=== PATIENT | male | born 1975 | race Caucasian/White ===

== ENCOUNTER 2020-09-10 19:40 | Inpatient (IN) | payer OTHER ==
[~2020-09-10] VITALS: Ht 175.3 cm; Wt 111.1 kg
[~2020-09-10 19:40] MED LIST: ADVAIR HFA 1112 UNIT INH; ATIVAN1 MG PO; AUGMENTIN 875875 M1; BENZONATATE200 MG; CELEXA 20 MG TA20 M1; LEVAQUIN 500 M500 M2 PO; LEVAQUIN 750 M750 MG PO; NOHOMEMEDICATIONS; PENICILLIN V P500 MG PO; PERCOCET 10-321 EACH PO; PREDNISONE 10 M10 MG PO; PROAIR HFA8.5 GM; SINGULAIR 10 MG10 M1 PO; TAMSULOSIN HCL0.4 M1 PO; ZOFRAN 4 MG ORAL4 MG PO
[2020-09-10 19:44] VITALS: BP 99/64
[2020-09-10] MEDS ORDERED: DECADRON6 MG PO (19:55)
[2020-09-10] MEDS ORDERED: INDERAL LA120 M1 PO (19:55)
[2020-09-10] MEDS ORDERED: DORYX MPC120 MG PO (19:56)
[2020-09-10 20:30] LABS: INFLUENZA A ANTIGEN Negative (Negative); INFLUENZA B ANTIGEN Negative (Negative)
[2020-09-10 20:44] LABS: WBC 6.8 thou/uL (4.0-11.0)
[2020-09-10 20:46] LABS: ABSOLUTE LYMPHOCYTES 0.8 thou/uL (0.8-5.3); ABSOLUTE MONOCYTES 0.5 thou/uL (0.0-1.2); ABSOLUTE NEUTROPHILS 5.4 thou/uL (1.6-8.1); BASOPHILS 0.1 %; HEMATOCRIT 39.9 % (42.0-52.0); LYMPHOCYTES 12.4 %; MCHC 35.1 g/dL (28.0-37.0); MCV 82.7 fL (80.0-100.0); MONOCYTES 7.3 %; MPV 8.4 fl. (7.2-11.1); NUCLEATED RBCS 0 /100WBC; PLATELET COUNT* 194 thou/uL (150-400); POLYS 80.2 %; RBC 4.83 mil/uL (4.50-6.00); RDW-CV 13.6 % (10.5-14.5)
[2020-09-10 20:51] LABS: CALCIUM 8.5 mg/dL (8.5-10.1); CREATININE 1.3 mg/dL (0.6-1.3); POTASSIUM 3.5 mmol/L (3.5-5.1)
[2020-09-10 20:56] LABS: TOTAL BILIRUBIN 0.8 mg/dL (<0.1-1.0); TOTAL PROTEIN 7.1 g/dL (6.4-8.2)
[2020-09-10 22:25] VITALS: BP 96/48
[2020-09-10 22:31] VITALS: BP 100/52
[2020-09-10 23:01] VITALS: BP 100/49
[2020-09-11] VITALS (12 sets, daily range): BP systolic 91–114; BP diastolic 55–69
--- NOTE | 2020-09-11 10:11 | NUR ---
ICU Rounds: Called patient over the phone due to COVID 19 isolation. Introduced role of CM. Patient admitted with SOA. Patient called PCP and was given a pulse ox which showed O2 sats below 90% so patient came to the hospital. Patient tested + for COVID x1 week ago. Patient lives at home in a house with his . Patient has mulitple stairs in his home but has no difficulty getting up and down stairs. Patient works and was independent with ADLS prior to admission. No hx of DME, HH, rehab, BHS services, or infusion therapy. PCP is Dr. Hiram Barth ([facility], [facility]: ). Patient currenly on 15L high flow and is SOA with activity. Patient will need resting ex ox at dc to determine if O2 is needed. No other needs anticipated. CM to continue to follow for safe dc planning
[2020-09-11 11:58] LABS: ABSOLUTE LYMPHOCYTES 0.5 thou/uL (0.8-5.3); ABSOLUTE MONOCYTES 0.6 thou/uL (0.0-1.2); ABSOLUTE NEUTROPHILS 5.6 thou/uL (1.6-8.1); BASOPHILS 0.1 %; HEMATOCRIT 39.3 % (42.0-52.0); HEMOGLOBIN 13.8 gm/dL (14.0-18.0); MCH 28.9 pg (26.0-34.0); MCV 82.6 fL (80.0-100.0); MPV 8.4 fl. (7.2-11.1); NUCLEATED RBCS 0 /100WBC; PLATELET COUNT* 195 thou/uL (150-400); POLYS 83.9 %; RBC 4.77 mil/uL (4.50-6.00); RDW-CV 13.2 % (10.5-14.5); WBC 6.6 thou/uL (4.0-11.0)
[2020-09-11 12:14] LABS: ALBUMIN 2.8 g/dL (3.4-5.0); APTT 23.3 Seconds (25.0-31.3); CALCIUM 8.5 mg/dL (8.5-10.1); CREATININE 1.1 mg/dL (0.6-1.3); INR 1.1; POTASSIUM 4.2 mmol/L (3.5-5.1); PROTIME 11.3 Seconds (9.20-11.50); TOTAL BILIRUBIN 0.5 mg/dL (<0.1-1.0); TOTAL PROTEIN 7.1 g/dL (6.4-8.2)
--- NOTE | 2020-09-11 14:34 | EKG ---
[place] [address] ELECTROCARDIOGRAM REPORT Name: CLAUDIA STEVE Room: [address] ADM IN .R.#: [id number] Admission: 09/10/20 Attend Phys: Diego Delarosa Discharge: Date of : 73 Date of Service: 09/10/201950 Report #: [id number] THIS REPORT FOR: //name// [facility] ED Test Date: 2020-09-10 Test Time: 19:51:22 Pat Name: CLAUDIA STEVE Department: Room: [facility] Gender: M General Office Dispatcher: MR : 1975 Requested By: Bianca Padron Order Number: [id number] MD: Hiram Cooper Measurements Intervals [place] Rate: 61 P: 18 AR: 137 QRS: 34 QRSD: 92 T: 39 QT: 465 QTc: 469 Interpretive Statements Sinus rhythm Baseline wander in lead(s) V1,V2 Compared to ECG 07/15/2015 16:36:10 No significant changes Electronically Signed On 09-11-2020 14:33:56 CDT by Hiram Cooper [email or web address] <ELECTRONICALLY SIGNED> By: Hiram Cooper MD, [facility] 09/11/20 1433 50 50 Hiram Cooper MD, [facility] /EPI
--- NOTE | 2020-09-11 19:22 | NUR ---
PT SAT IN THE RECLINER FOR MOST PART OF THE DAY, UP AD TOM. O2 TITRATED TO KEEP SATS >92%, CURRENTLY AT HFNC 8 L/MIN. ONE UNIT OF CONVALESCENT PLASMA TRANSFUSED. ENCOURAGED DIET AND INCENTIVE SPIROMETRY.
[2020-09-12] VITALS (8 sets, daily range): BP systolic 99–121; BP diastolic 45–64
[2020-09-12 04:18] LABS: ABSOLUTE LYMPHOCYTES 0.5 thou/uL (0.8-5.3); ABSOLUTE MONOCYTES 0.6 thou/uL (0.0-1.2); ABSOLUTE NEUTROPHILS 4.5 thou/uL (1.6-8.1); BASOPHILS 0.3 %; HEMATOCRIT 35.2 % (42.0-52.0); HEMOGLOBIN 12.3 gm/dL (14.0-18.0); LYMPHOCYTES 8.5 %; MCHC 35.1 g/dL (28.0-37.0); MCV 82.8 fL (80.0-100.0); MONOCYTES 10.3 %; MPV 8.4 fl. (7.2-11.1); NUCLEATED RBCS 0 /100WBC; PLATELET COUNT* 181 thou/uL (150-400); POLYS 80.9 %; RBC 4.25 mil/uL (4.50-6.00); RDW-CV 13.1 % (10.5-14.5); WBC 5.6 thou/uL (4.0-11.0)
[2020-09-12 04:48] LABS: ALBUMIN 2.6 g/dL (3.4-5.0); CALCIUM 8.6 mg/dL (8.5-10.1); MAGNESIUM 2.3 mg/dL (1.8-2.4); POTASSIUM 4.2 mmol/L (3.5-5.1); TOTAL BILIRUBIN 0.4 mg/dL (<0.1-1.0); TOTAL PROTEIN 6.5 g/dL (6.4-8.2)
--- NOTE | 2020-09-12 10:26 | NUR ---
ICU Rounds: Patient remains on 8L High flow. Continue remdesivr, steroids and convalescent plasma. Patient to stay through the weekend. May need O2 at discharge if not able to wean off O2. Resting ex ox (if not on RA) will be needed prior to discharge.
--- NOTE | 2020-09-12 19:26 | NUR ---
O2 SUPPORT DOWN TO 5L CURRENTLY, TOLERATING WELL. VSS. ENCOURAGED INCENTIVE SPIROMETRY AND MOBILITY AROUND THE ROOM. PROGRESSING TOWARDS GOALS.
[2020-09-13] VITALS: BP 121/70
--- NOTE | 2020-09-13 04:27 | NUR ---
ASSUMED PATIENT CARE AT 1900. ASSESSMENTS COMPLETED CHARTED. CARDIAC MONITORING IN PLACE. PATIENT HAD NO BM DURING SHIFT. HOURLY ROUNDING IN PLACE FOR PATIENT SAFETY. FALL PRECAUTIONS IN PLACE FOR PATIENT SAFETY. BED LOCKED AND IN LOWEST POSITION. CLWR.
[2020-09-13 05:41] LABS: HEMATOCRIT 36.2 % (42.0-52.0); HEMOGLOBIN 12.6 gm/dL (14.0-18.0); MCH 28.8 pg (26.0-34.0); MCHC 34.8 g/dL (28.0-37.0); MCV 82.7 fL (80.0-100.0); MPV 8.1 fl. (7.2-11.1); NUCLEATED RBCS 0 /100WBC; PLATELET COUNT* 197 thou/uL (150-400); RBC 4.37 mil/uL (4.50-6.00); RDW-CV 13.5 % (10.5-14.5); WBC 7.4 thou/uL (4.0-11.0)
[2020-09-13 05:55] LABS: PREALBUMIN 17.6 mg/dL (18.0-35.7)
[2020-09-13 06:02] LABS: ALBUMIN 2.8 g/dL (3.4-5.0); CALCIUM 8.1 mg/dL (8.5-10.1); MAGNESIUM 2.1 mg/dL (1.8-2.4); POTASSIUM 3.4 mmol/L (3.5-5.1); TOTAL BILIRUBIN 0.5 mg/dL (<0.1-1.0); TOTAL PROTEIN 6.4 g/dL (6.4-8.2)
[2020-09-13 07:12] LABS: ABSOLUTE MONOCYTES 0.1 thou/uL (0.0-1.2); ABSOLUTE NEUTROPHILS 6.3 thou/uL (1.6-8.1); PLATELET ESTIMATE ADEQUATE
[2020-09-13 08:00] VITALS: BP 116/65
--- NOTE | 2020-09-13 14:53 | NUR ---
PT NOTED TO HAVE PVC'S AND COUPLETS, K+ 3.4, DR PALMER ON UNIT, REQUESTED KCL FOR PT, ORDERS RCVD, WILL CONTINUE TO MONITOR.
[2020-09-13 16:39] VITALS: BP 114/69
[2020-09-13 17:11] LABS: CALCIUM 8.5 mg/dL (8.5-10.1); CREATININE 0.9 mg/dL (0.6-1.3); MAGNESIUM 2.3 mg/dL (1.8-2.4)
[2020-09-13 20:27] VITALS: BP 111/68
[2020-09-13 23:27] VITALS: BP 106/64
[2020-09-14 04:25] VITALS: BP 102/61
[2020-09-14 08:55] LABS: CALCIUM 8.6 mg/dL (8.5-10.1)
[2020-09-14 20:37] VITALS: BP 115/51
[2020-09-15 00:11] VITALS: BP 114/66
[2020-09-15] MEDS ORDERED: DECADRON6 MG PO (09:16)
[2020-09-15] MEDS ORDERED: CEFDINIR300 MG PO (09:18)
[2020-09-15 12:17] VITALS: BP 98/67
[2020-09-15 14:12] VITALS: BP 114/66
[2020-09-15 14:35] VITALS: BP 114/66
--- NOTE | 2020-09-15 14:44 | NUR ---
ICU Rounds: Patient to discharge today with O2 through [employer]. 5L with activity and 5L at rest. Patient understands that he will be going home with O2. [employer] to deliver O2 today. Resting ex ox charted. Clinicals and orders faxed to Basia at [facility]. RN and Isaura updated on plan of care. Basia ([facility]) [phone] No other needs for discharge.
--- NOTE | 2020-09-15 16:41 | NUR ---
DISCHARGE EDUCATION GIVEN. EDUCATED REGARDING SELF ISOLATION TILL 09/21/20. PT LEFT THE UNIT AT 1630.
[2020-09-15 16:43] VITALS: BP 114/66
--- NOTE | 2020-09-15 20:33 | CON ---
[address] [address] CONSULTATION Name: CLAUDIA STEVE Room: [address] IN M.R.#: [id number] Admission: 09/10/20 Attend Phys: Marcial Loyd Discharge: 09/15/20 Date of : 73 Report #: [id number] THIS REPORT FOR: cc: Hiram Barth John E. DO Pervez, Adeel MD ~ DOC #: [id number] Baljinder Garcia MD DATE OF CONSULTATION: 09/11/2020 REQUESTING PHYSICIAN: Hima Jackson MD INDICATION FOR CONSULTATION: Acute hypoxemic respiratory failure secondary to COVID-19. HISTORY OF PRESENT ILLNESS: This is a 45-year-old gentleman. He has a history of bronchial asthma, primarily when exposed to cat dander, occasionally uses albuterol at home. In fact, he has not been requiring any therapy for asthma recently. He reports to be a lifetime nonsmoker. The patient was now diagnosed with COVID-19 about a week ago. He has not previously had the COVID-19 vaccine. He has been treated by his primary care physician with dexamethasone at 6 mg as well as doxycycline for a week. Interestingly, he has also been on propranolol, the reason he was on propranolol is not known to me. The patient's respiratory status, however, has continued to decline. He has developed increasing shortness of breath. He has also had increase in cough, which is the reason that he eventually came to the Emergency Room yesterday. The patient initially was hypoxemic on room air, requiring 2 liters of oxygen to maintain O2 saturation. He did receive 2 liters of IV fluids overnight. There was mild elevation in creatinine at 1.3 last night. The patient's oxygen needs have worsened since yesterday. He is now requiring 15 liters of oxygen to maintain O2 saturation, although he does not appear to be in any distress at this time, he is comfortably sitting in the chair. He does not have much sputum production. He has not had fever or chills. There is no swelling of lower extremities. There is no calf pain. His body mass index is elevated to 36. Therefore, I specifically asked him about sleep complaints. He denies any daytime sleepiness or disturbed sleep at night with the exception of the last few days. He does not have a longstanding issue with sleep. The patient reports that he usually sleeps on his sides. REVIEW OF SYSTEMS: For 12 points is negative except as mentioned above. PAST MEDICAL HISTORY: Kidney stones, bronchial asthma, only occasional albuterol use which he has not used recently, use of propranolol for [place] [address] CONSULTATION Name: CLAUDIA STEVE Room: [address] IN .R.#: [id number] Admission: 09/10/20 Attend Phys: Marcial Loyd Discharge: 09/15/20 Date of : 73 Report #: [id number] CURRENT MEDICATIONS: List in [facility] reviewed. HOME MEDICATIONS: List also in [facility] reviewed. Also, see discussion above. SOCIAL HISTORY: Only occasional alcohol use. No known history of smoking or illegal drug use. FAMILY HISTORY: No pertinent family history. PHYSICAL EXAMINATION: GENERAL: He was alert, awake and oriented, sitting comfortably in a chair. He is not in any distress at this time. VITAL SIGNS: O2 saturation initially this morning was 90-91% on 15 liters of nasal cannula, but in fact this is coming up and we are now around 94-95%. Has a pulse of 70 and a blood pressure of 100/49 which is on the lower side, but appears to be well perfused. With this, his respiratory rate was mildly elevated to around 20 at the time of my evaluation. He is afebrile with a temperature of 36.4. Body mass index is above 36. HEENT: Head is normocephalic and atraumatic. Pupils are equal. There is no throat erythema. He does have a somewhat narrow airway. Mucous membranes are moist. NECK: Does not show raised JVP, asymmetry, mass or lymph nodes. CHEST: Symmetrical expansion on inspection and palpation. On auscultation, breath sounds do appear to be reduced bilaterally, but they are bilaterally equal. I do not hear any added sounds. HEART: Regular. There is no murmur. ABDOMEN: Soft and nontender. EXTREMITIES: Lower extremities show no edema, no calf tenderness. SKIN: Dry and intact. NEUROLOGIC: Moves all extremities bilaterally equally and spontaneously with no focal deficit identified. LABORATORY DATA: The patient's chest x-ray shows bilateral interstitial infiltrates consistent with COVID-19. The patient's lab work is in [facility] and this is also reviewed. The patient's COVID-19 antigen is positive. Influenza is negative. Creatinine last night 1.3. D-dimer is elevated. I repeated labs now. Creatinine is now normal at 1.1, but the patient now does have an increase in oxygen needs as above. I also have a previous chest x-rays available, previous chest x-ray shows some scarring and hyperinflation. The interstitial infiltrates are new. There is a previous CT performed in 2012 which shows a 3.2 mm lung nodule in the left lower lobe. ASSESSMENT AND PLAN: [facility] [address] [place] [address] CONSULTATION Name: CLAUDIA STEVE Room: [address] IN M.R.#: [id number] Admission: 09/10/20 Attend Phys: Marcial Loyd Discharge: 09/15/20 Date of : 73 Report #: [id number] 1. Acute hypoxemic respiratory failure secondary to COVID-19. He is out of bed to chair and I recommend continuing to do so. I also recommended incentive spirometry. I told him that it will be best if he is able to sleep prone. If he is unable to sleep prone, then recommend sleeping on sides. I recommend against supine sleep. I did not order a BiPAP while asleep for now, however, I will have a low threshold of adding this in case his respiratory status was to decline. 2. COVID-19. Agree with Decadron. We will continue the current dose. He is also in remdesivir, which I agree with and we will continue. He is receiving 1 unit of convalescent plasma. I also agree with the same. We will reassess later today or tomorrow and see if he needs a second unit. I will go ahead and give him a dose of Actemra as well, watch LFTs. 3. Pulmonary infiltrates. He has received doxycycline already for the last week. At this time, we will give him ceftriaxone. We will do a sputum culture and nasal swab for MRSA to cover for secondary bacterial infections. 4. Elevated D dimer/evaluation for thromboembolic phenomena. For now, I ordered intermediate dose Lovenox. We will go ahead with venous Dopplers. If the venous Dopplers are negative, then I will proceed with a CTA chest today. In the unlikely event, if the venous Dopplers do show a clot, then I would change the CT order to a chest x-ray today. 5. Bronchial asthma. He is on Decadron as above. He is also on DuoNebs. He is not actively bronchospastic at this time. 6. History of propranolol use. We will investigate further regarding how long he has been taking propranolol. If he has been on it for a long period of time, then we may need to consider giving him a beta jovany for now to avoid withdrawal, potentially metoprolol could be considered. 7. Mild hyperglycemia, insulin sliding scale. 8. Gastrointestinal prophylaxis, on Protonix. 9. Clostridium difficile prophylaxis. We will add Lactinex. The patient is critically ill at this time with acute hypoxemic respiratory failure secondary to COVID-19. Total time spent providing critical care to this patient today is 41 minutes. Baljinder Garcia MD [place] [address] CONSULTATION Name: CLAUDIA STEVE Room: [address] IN M.R.#: [id number] Admission: 09/10/20 Attend Phys: Marcial Loyd Discharge: 09/15/20 Date of : 73 Report #: [id number] <ELECTRONICALLY SIGNED> By: Baljinder Garcia MD 09/15/202032 1135 1859Ajackie Garcia MD /nt
== END 2020-09-15 16:30 | disposition home or self-care (01) | DRG 871 ==
LOC: M.ERS 19:40 → M.ICU 21:01 → M.TBA-ER 21:01 → M.ICU 22:08
PROVIDERS: Emergency Medicine; Internal Medicine; Internal Medicine Critical Care Medicine; ADMIT Internal Medicine; ATTEND Internal Medicine
PROC: XW033E5 Introduction of Remdesivir Anti-infective into Peripheral Vein, Percutaneous Approach, New Technology Group 5 (ICD-10-PCS; principal; 2020-09-11)
PROC: 5A0935A Assistance with Respiratory Ventilation, Less than 24 Consecutive Hours, High Flow/Velocity Cannula (ICD-10-PCS; principal; 2020-09-11)
PROC: XW13325 Transfusion of Convalescent Plasma (Nonautologous) into Peripheral Vein, Percutaneous Approach, New Technology Group 5 (ICD-10-PCS; principal; 2020-09-11)
PROC: 5A0945A Assistance with Respiratory Ventilation, 24-96 Consecutive Hours, High Flow/Velocity Cannula (ICD-10-PCS; 2020-09-13)
DX: A41.89 Other specified sepsis (principal); U07.1 COVID-19; J96.01 Acute respiratory failure with hypoxia; J12.82 Pneumonia due to coronavirus disease 2019; J45.909 Unspecified asthma, uncomplicated; E66.9 Obesity, unspecified; R73.9 Hyperglycemia, unspecified; Z88.8 Allergy status to other drugs, medicaments and biological substances; Z79.899 Other long term (current) drug therapy; Z72.89 Other problems related to lifestyle; Z68.36 Body mass index [BMI] 36.0-36.9, adult; Z99.81 Dependence on supplemental oxygen

== ENCOUNTER → 2020-10-30 | Outpatient (CLI) | payer OTHER ==
[~2020-10-30] MED LIST changes: +CEFDINIR300 MG PO; +DECADRON6 MG PO; +DORYX MPC120 MG PO; +INDERAL LA120 M1 PO
== END ==
LOC: M.CT 10-29 14:00
PROVIDERS: ATTEND Nurse Practitioner Family
DX: R91.8 Other nonspecific abnormal finding of lung field (principal); M25.78 Osteophyte, vertebrae

== ENCOUNTER → 2021-01-13 | Outpatient (CLI) | payer OTHER ==
--- NOTE | 2021-01-13 13:32 | 2DMMODE ---
[place] [address] 2 D/M-MODE ECHOCARDIOGRAM Name: CLAUDIA STEVE Room: [facility]#: [id number] Admission: 01/13/21 Attend Phys: Soto Mahajan MD Discharge: Date of : 73 Date of Service: 01/13/21 1332 Report #: [id number] THIS REPORT FOR: cc: Hiram Barth John E. DO Liston, Michael J. MD [facility] ~ APPROVED REPORT Study performed: 01/13/2021 08:46:02 EXAM: Comprehensive 2D, Doppler, and color-flow Echocardiogram Patient Location: Out-Patient BSA: 2.26 HR: 62 bpm BP: 124/82 mmHg Other Information Study Quality: Good Indications PVCs Post covid 2D Dimensions IVSd: 12.06 (7-11mm) LVOT Diam: 20.87 (18-24mm) LVDd: 48.08 mm PWd: 10.53 (7-11mm) Ascending Ao: 32.71 (22-36mm) LVDs: 26.35 (25-40mm) Aortic Root: 31.58 mm Volumes Left Atrial Volume (Systole) LA ESV Index: 12.30 mL/m2 Aortic Valve AoV Peak Daniel.: 1.09 m/s AO Peak Gr.: 4.73 mmHg LVOT Max P.98 mmHg AO Mean Gr.: 2.44 mmHg LVOT Mean P.94 mmHg LVOT Max V: 1.00 m/s AO V2 VTI: 19.96 cm LVOT Mean V: 0.64 m/s GLADYS (VTI): 3.59 cm2 LVOT V1 VTI: 20.94 cm Mitral Valve E/A Ratio: 0.97 [place] [address] 2 D/M-MODE ECHOCARDIOGRAM Name: CLAUDIA STEVE Room: [facility]#: [id number] Admission: 01/13/21 Attend Phys: Soto Mahajan MD Discharge: Date of : 73 Date of Service: 01/13/21 1332 Report #: [id number] MV Decel. Time: 182.33 ms MV E Max Daniel.: 0.62 m/s MV PHT: 52.88 ms MVA (PHT): 4.16 cm2 TDI E/Lateral E': 5.17 E/Medial E': 6.20 Medial E' Daniel.: 0.10 m/s Lateral E' Daniel.: 0.12 m/s Pulmonary Valve PV Peak Daniel.: 1.04 m/s PV Peak Gr.: 4.32 mmHg Left Ventricle The left ventricle is normal size. There is normal LV segmental wall motion. There is normal left ventricular wall thickness. Left ventricular systolic function is normal. LVEF is 55-60%. The left ventricular diastolic function is normal. Right Ventricle The right ventricle is normal size. The right ventricular systolic function is normal. Atria The left atrium size is normal. The right atrium size is normal. Aortic Valve The aortic valve is normal in structure. No aortic regurgitation is present. There is no aortic valvular stenosis. Mitral Valve The mitral valve is normal in structure. There is no mitral valve regurgitation noted. No evidence of mitral valve stenosis. Tricuspid Valve The tricuspid valve is normal in structure. There is no tricuspid valve regurgitation noted. Pulmonic Valve The pulmonary valve is normal in structure. Mild pulmonic regurgitation. Great Vessels The aortic root is normal in size. IVC is normal in size and collapses >50% [place] [address] 2 D/M-MODE ECHOCARDIOGRAM Name: CLAUDIA STEVE Room: [facility]#: [id number] Admission: 01/13/21 Attend Phys: Soto Mahajan MD Discharge: Date of : 73 Date of Service: 01/13/21 1332 Report #: [id number] Pericardium There is no pericardial effusion. <Conclusion> The left ventricle is normal size. There is normal left ventricular wall thickness. Left ventricular systolic function is normal. LVEF is 55-60%. The left ventricular diastolic function is normal. There is normal LV segmental wall motion. Mild pulmonic regurgitation. IVC is normal in size and collapses >50% with inspiration. <ELECTRONICALLY SIGNED> By: Evelio Eugene MD, FACC 01/13/211331 31 31 Evelio Eugene MD, FACC /INF
== END ==
LOC: M.CRD 07:46
PROVIDERS: ATTEND Internal Medicine Cardiovascular Disease
DX: I37.1 Nonrheumatic pulmonary valve insufficiency (principal); I49.3 Ventricular premature depolarization